=== PATIENT | female | born 1955 | race Caucasian/White ===

== ENCOUNTER → 2017-02-04 | Day surgery (SDC) | payer OTHER ==
[~2017-02-04] VITALS: Ht 152.4 cm; Wt 61.7 kg
[~2017-02-04] MED LIST: TAMIFLU 75MG CA75 MG PO; ZOFRAN ODT4 MG SL; ZOLOFT50 MG PO
--- NOTE | ~2017-02-04 | PROC NOTE ---
[place], [place] PROCEDURE NOTE NAME: DANE VERDUZCO UNIT #: [id number] ROOM: DOCTOR: JOHAN CHACON MD BIRTHDATE: [birth year] DOS: 02/04/2017 PREOPERATIVE DIAGNOSIS: Screening examination. POSTOPERATIVE DIAGNOSIS: Mild sigmoid diverticulosis. PROCEDURE: Colonoscopy. ENDOSCOPIST: Johan Chacon MD MANAGER PEDIATRIC: MS3. ANESTHESIA: MAC. INDICATIONS: This is a 61-year-old lady who has never had a colonoscopy before, who is here for a screening examination. The procedure and its complications were explained to the patient in detail preoperatively. Complications that were discussed included but were not limited to, bleeding, colon perforation, and missed lesions, and she agreed to proceed. DESCRIPTION OF PROCEDURE: After identifying the patient, the patient was brought to the endoscopy suite and placed in the left lateral position. After IV sedation was administered, a timeout procedure was called and a digital rectal exam was performed. This was within normal limits. An adult colonoscope was now introduced into the anal canal and advanced sequentially into the rectum, sigmoid colon, descending colon, transverse colon and ascending colon up to the cecum. There was found to be mild sigmoid diverticulosis. Otherwise, the entire mucosa was within normal limits. Upon reaching the cecum, the scope was withdrawn. Total withdrawal time was approximately 6 minutes and 45 seconds. After the scope was withdrawn, the patient was taken to the recovery room in stable fashion. There were no complications. Dr. Johan Chacon, the attending surgeon, was present throughout the operating case. Based on these findings, the patient is recommended to have her next colonoscopy in 10 years. This was explained to the patient's family in the postoperative recovery room. Johan Chacon MD CM:PROCNOTE:PROCEDURE NOTE [id number] JOHAN CHACON MD
[2017-02-04 06:40] VITALS: BP 116/64
[2017-02-04 07:47] VITALS: BP 96/59
[2017-02-04 07:55] VITALS: BP 88/57
[2017-02-04 08:16] VITALS: BP 115/57
== END | disposition home or self-care (01) ==
LOC: SDC 02:06
DX: Z12.11 Encounter for screening for malignant neoplasm of colon (principal); K57.30 Diverticulosis of large intestine without perforation or abscess without bleeding; F17.210 Nicotine dependence, cigarettes, uncomplicated

== ENCOUNTER → 2018-08-29 | Day surgery (SDC) | payer OTHER | END | disposition home or self-care (01) | LOC: SDC 03:30 | DX: E04.1 Nontoxic single thyroid nodule (principal); Z53.8 Procedure and treatment not carried out for other reasons ==

== ENCOUNTER 2020-01-26 20:44 | Emergency (ER) | payer OTHER ==
[2020-01-26] MEDS ORDERED: PANTOPRAZOLE SO40 MG PO (20:58)
[2020-01-26] MEDS ORDERED: IBU800 M1 PO (20:58)
[2020-01-26] MEDS ORDERED: AVPAK AZITHROM250 M1 PO (20:58)
[2020-01-26] MEDS ORDERED: SIMVASTATIN10 MG PO (20:58)
[2020-01-26 22:47] LABS: BASO % 0.3 % (0.0-1.0); EOS # 0.1 10*3/uL (0.0-0.4); EOS % 1.1 % (1.0-4.0); HEMATOCRIT 34.1 % (37.0-47.0); LYMPH # 1.2 10*3/uL (1.3-4.4); LYMPH % 10.5 % (27.0-41.0); MEAN CELL VOLUME 90.9 fl (81.0-99.0); MEAN CORPUSCULAR HGB 28.5 pg (27.0-31.0); MEAN CORPUSCULAR HGB CONC 31.4 g/dl (33.0-37.0); MEAN PLATELET VOLUME 10.2 fl (9.6-12.3); MONO # 0.9 10*3/uL (0.1-1.0); MONO % 7.6 % (3.0-9.0); NEUT % 79.8 % (47.0-73.0); PLATELET COUNT AUTOMATED 402 10*3/uL (130-400); RED BLOOD COUNT 3.75 10*6/uL (4.10-5.10); RED CELL DISTRI WIDTH 14.2 % (0-14.5); WHITE BLOOD COUNT 11.3 10*3/uL (4.8-10.8)
[2020-01-26 22:57] LABS: ACT PARTIAL THROMBO TIME 29.1 SECONDS (20.0-32.1)
[2020-01-26 23:03] LABS: ALBUMIN 2.8 gm/dl (3.1-4.5); ALKALINE PHOSPHATASE 123 U/L (45-117); BILIRUBIN NEGATIVE; BLOOD 2+ (NEGATIVE); BUN 13 mg/dl (7-24); CHLORIDE 104 mmol/L (98-107); CLARITY CLOUDY (CLEAR); COLOR YELLOW (YELLOW); CREATININE 1.04 mg/dL (0.55-1.02); GLUCOSE NEGATIVE; KETONE NEGATIVE; POTASSIUM 3.5 mmol/L (3.5-5.1); SGOT/AST 25 IU/L (3-35); SGPT/ALT 45 U/L (12-78); SODIUM 139 mmol/L (136-145); SPECIFIC GRAVITY < 1.005 (1.001-1.030); TOTAL PROTEIN 8.2 gm/dL (6.4-8.2)
[2020-01-26 23:04] LABS: LEUKO ESTERASE 2+ (NEGATIVE); NITRITE NEGATIVE (NEGATIVE); TROPONIN I < 0.015 ng/ml (<0.045); UROBILINOGEN 0.2 E.U./dl (0.0-1.0)
[2020-01-26 23:08] LABS: BACTERIA TRACE; WBC 16-20 wbc/hpf (0-5)
[2020-01-27] MEDS ORDERED: FLONASE ALLERG9.9 ML NAS (00:04)
[2020-01-27] MEDS ORDERED: MACROBID100 M1 PO (00:04)
== END 2020-01-27 01:34 | disposition home or self-care (01) ==
LOC: ED 20:44
PROVIDERS: Emergency Medicine Emergency Medical Services
DX: N39.0 Urinary tract infection, site not specified (principal); J32.9 Chronic sinusitis, unspecified; R70.0 Elevated erythrocyte sedimentation rate; Z79.899 Other long term (current) drug therapy; Z87.891 Personal history of nicotine dependence

== ENCOUNTER → 2023-10-06 | Outpatient (CLI) | payer OTHER ==
[~2023-10-06] MED LIST changes: +AVPAK AZITHROM250 M1 PO; +FLONASE ALLERG9.9 ML NAS; +IBU800 M1 PO; +MACROBID100 M1 PO; +PANTOPRAZOLE SO40 MG PO; +SIMVASTATIN10 MG PO
== END | disposition home or self-care (01) ==
LOC: US 00:10
PROVIDERS: ATTEND Internal Medicine
DX: E04.1 Nontoxic single thyroid nodule (principal)